=== PATIENT | female | born 1955 | race Caucasian/White ===

== ENCOUNTER → 2018-11-28 | Outpatient (CLI) | payer OTHER ==
--- NOTE | 2018-11-28 20:24 | US ---
EXAM DESCRIPTION: Renal: Ultrasound. CLINICAL HISTORY: 63 years Female Hematuria COMPARISON: Bilateral renal arterial Doppler evaluation on the same visit. TECHNIQUE: Transcutaneous scanning: Two-dimensional and Doppler modes. FINDINGS: Right kidney measures 10.7 x 5.1 x 4.7 cm; mid-renal cortical thickness normal. . Normal hypoechoic echogenicity. No hydronephrosis No echogenic stones. Smooth contour of the kidney with no perinephric fluid. Normal vascularity. Proximal ureter not visualized. Left kidney measures 10.4 x 5.3 x 5.2 cm; mid-renal cortical thickness normal. Abnormal hypoechoic echogenicity. No hydronephrosis. No echogenic stones. Smooth contour of the kidney with no perinephric fluid. Normal vascularity.. Proximal ureter not visualized. Urinary bladder was visualized. Volume 63 mL. Ureteral jet in the bladder seen bilaterally by color Doppler. Post void volume not measured. Abdominal aorta: Normal caliber from the proximal segment to the distal bifurcation. Caliber of the IVC is unremarkable. IMPRESSION: Normal ultrasound of the bilateral kidneys. Ureters are not visualized. Small urinary bladder. Bilateral Doppler ureteral jets seen in the bladder by color. Normal caliber of the abdominal aorta and IVC. This examination is not sensitive for evaluation of intraluminal or wall lesions of the urinary bladder. Electronically signed by: Joe Carlos MD 11/28/2018 8:23 PM CDT
== END ==
LOC: US 09:17
PROVIDERS: ATTEND Internal Medicine
DX: R31.9 Hematuria, unspecified (principal)